=== PATIENT | male | born 1990 | race African-American/Black ===

== ENCOUNTER 2020-11-27 14:43 | Emergency (ER) | payer SELFPAY ==
[~2020-11-27] VITALS: Ht 170.2 cm; Wt 81.6 kg
[~2020-11-27 14:43] MED LIST: RISP0.5T17 OR; [UNRECOGNIZED DRUG - OTHER]
[2020-11-27 14:45] VITALS: BP 130/95
[2020-11-27] MEDS ORDERED: ACETAMINOPHEN 500 MG TAB PO ONE (16:45)
== END 2020-11-27 18:12 | disposition home or self-care (01) ==
LOC: ER 14:43
DX: S09.90XA Unspecified injury of head, initial encounter (principal); Z88.0 Allergy status to penicillin; X58.XXXA Exposure to other specified factors, initial encounter; Y93.89 Activity, other specified; Y92.89 Other specified places as the place of occurrence of the external cause; Y99.8 Other external cause status
CPT/HCPCS: 70450